=== PATIENT | male | born 1950 | race Caucasian/White ===

== ENCOUNTER → 2018-05-04 19:03 | Outpatient (REF) | payer OTHER, SELFPAY ==
[2018-05-04 19:50] LABS: Add Manual Diff / Slide Review NO; Basophils Absolute Auto 0 /uL (0-100); Basophils Percent Auto 0.5 % (0-2); Eosinophils Absolute Auto 300 /uL (0-450); Eosinophils Percent Auto 4.2 % (2-4); Hematocrit 41.5 % (41-53); Hemoglobin 13.8 g/dL (13.5-17.5); Lymphocytes Absolute Auto 1400 /uL (1100-4500); Lymphocytes Percent Auto 19.4 % (25-40); Mean Corpuscular HGB Conc 33.3 % (30-36); Mean Corpuscular Hemoglobin 29.9 PG (26-34); Mean Corpuscular Volume 89.9 fL (80-100); Monocytes Absolute Auto 500 /uL (0-900); Neutrophils Absolute Auto 5000 /uL (1500-7000); Neutrophils Percent Auto 68.9 % (50-75); Platelet Count 224 X10^3/uL (150-400); Red Blood Cell Count 4.61 X10^6/uL (4.5-5.9); Red Cell Distribution Width 13.3 % (11.6-14.8); White Blood Cell Count 7.3 X10^3/uL (4.5-11.0)
[2018-05-04 20:01] LABS: Alanine Aminotransferase 54 IU/L (21-72); Albumin 4.1 g/dL (3.5-5.0); Albumin Globulin Ratio 1.5 (1.0-2.8); Alkaline Phosphatase 78 U/L (38-126); Aspartate Aminotransferase 48 IU/L (17-59); BUN Creatinine Ratio 16.7 (6-22); Blood Urea Nitrogen 15 mg/dL (9-20); Calcium 9.2 mg/dL (8.4-10.2); Carbon Dioxide 25 mmol/L (22-32); Chloride 100 mmol/L (98-107); Cholesterol 104 mg/dL (140-199); Estimated Glomerular Filt Rate > 60.0 mL/min (>60); Globulin 2.7 g/dL (1.7-4.1); Glucose 90 mg/dL (80-110); HDL Cholesterol 62 mg/dL (40-60); HEMOLYSIS < 15 (0-50); LDL Cholesterol Calculated 29 mg/dL (<100); Potassium 4.3 mmol/L (3.4-5.1); Sodium 136 mmol/L (137-145); Total Protein 6.8 g/dL (6.3-8.2); Triglycerides 63 mg/dL (35-150)
[2018-05-04 20:31] LABS: Prostate Specific Antigen 9.57 ng/mL (0.10-4.00)
== END ==
LOC: LAB 19:03
PROVIDERS: Visit Provider Physician Assistant Medical
DX: I21.9 Acute myocardial infarction, unspecified (principal); I10 Essential (primary) hypertension; Z12.5 Encounter for screening for malignant neoplasm of prostate; Z13.220 Encounter for screening for lipoid disorders
CPT/HCPCS: 36415; 80053; 80061; 84153; 85025

== ENCOUNTER → 2019-10-30 11:15 | Outpatient (CLI) | payer MEDICARE, SELFPAY ==
[2019-10-30 13:05] LABS: Prostate Specific Antigen 58.5 ng/mL (0.10-4.00)
== END ==
PROVIDERS: PCP Family Medicine; Referring Provider Family Medicine; Visit Provider Specialist
DX: N40.3 Nodular prostate with lower urinary tract symptoms (principal); R97.20 Elevated prostate specific antigen [PSA]; Z80.42 Family history of malignant neoplasm of prostate
CPT/HCPCS: 36415; 81002; 84153; 99214

== ENCOUNTER → 2019-12-09 10:58 | Outpatient (CLI) | payer MEDICARE, SELFPAY ==
--- NOTE | 2019-12-09 11:00 | DI.NM.S_ITS ---
PROCEDURE: NM BONE SCAN WHOLE BODY RADIOPHARMACEUTICAL: 23.3 mCi Tc-99m MDP IV. INDICATIONS: prostate cancer TECHNIQUE: Delayed whole-body scintigrams were obtained approximately 3-4 hours after intravenous injection of radiotracer. Anterior and posterior views were acquired from vertex to feet. Additional left and right oblique views of the pelvis were obtained. COMPARISON: [facility], CT, CT CHEST ABD PEL W CON, 12/09/2019, 12:34. FINDINGS: Physiologic uptake is noted within the kidneys and bladder. Mild areas of increased uptake are noted within the small bones of the feet. Small areas of increased uptake are noted overlying the glenohumeral joints. It is noted that no abnormality within this region is identified on CT exam of 12/09/2019. IMPRESSION: No definitive areas of metastatic disease. Dictated by: Lilo Muller M.D. on 12/09/2019 at 17:10 Approved by: Lilo Muller M.D. on 12/09/2019 at 17:12
[2019-12-09 12:20] LABS: BUN Creatinine Ratio 18.1 (6-22); Blood Urea Nitrogen 21 mg/dL (9-20); Calcium 9.6 mg/dL (8.4-10.2); Carbon Dioxide 31 mmol/L (22-32); Chloride 104 mmol/L (98-107); Estimated Glomerular Filt Rate > 60.0 mL/min (>60); Glucose 95 mg/dL (80-110); HEMOLYSIS < 15 (0-50); Potassium 4.2 mmol/L (3.4-5.1); Sodium 139 mmol/L (137-145)
--- NOTE | 2019-12-09 12:55 | DI.CT.S_ITS ---
PROCEDURE: CT CHEST ABD PEL W CON INDICATIONS: prostate cancer TECHNIQUE: After the administration of oral and intravenous contrast, 5 mm thick sections acquired from the lung apices to the symphysis. 5 mm coronal and sagittal reformats were performed, with additional 7 mm coronal MIP reformats through the lungs. For radiation dose reduction, the following was used: automated exposure control, adjustment of mA and/or kV according to patient size. COMPARISON: None. FINDINGS: Image quality: Excellent. CHEST: Lungs and pleura: Peripheral reticular thickening with mild honeycombing at the upper lobes anteriorly. This is due to fibrosis. Accessory azygos fissure. A few punctate calcified granuloma. No acute airspace opacities. No pleural effusions or pneumothorax. Central and peripheral airways appear patent and normal in caliber. Mediastinum: Heart size is normal. No pericardial effusion. Small left pericardiac lymph node. No mediastinal or hilar adenopathy by size criteria. Mildly prominent paratracheal lymph node. Thoracic aorta and central pulmonary arteries are normal in size. No central pulmonary embolism. Esophagus is normal in caliber. No hiatal hernia. Chest wall: No axillary or supraclavicular adenopathy by size criteria. Thyroid gland is unremarkable. ABDOMEN: Solid organs: Liver is normal in size and enhancement. Gallbladder is unremarkable . Biliary system is non dilated. Pancreas enhances normally. Spleen is normal in size and enhancement. No adrenal nodules. Kidneys demonstrate normal size and enhancement, without hydronephrosis. Peritoneum and bowel: Bowel loops demonstrate normal wall thickness and caliber. No free fluid or air. Diverticulosis. Normal appendix. Nodes and vessels: No retroperitoneal or mesenteric adenopathy by size criteria. Small left periaortic lymph node. Aorta and inferior vena cava are normal in size. Miscellaneous: No ventral hernias. PELVIS: Genitourinary: Bladder is unremarkable. The prostate gland is enlarged. There is abnormal thickening surrounding the inferior rectum which appears contiguous with the prostate gland, (4/116). This could be due to extracapsular extension. Miscellaneous: Small fat containing left inguinal hernia. No enlarged adenopathy. Bones: Sclerotic focus in the right L5 transverse process, (5/40). No vertebral body compression fractures. IMPRESSION: 1. Abnormal thickening of the inferior rectum. This could be due to extraprostatic extension, rectal cancer, or infectious/inflammatory etiology. -consider further evaluation with a prostate MRI. 2. No enlarged pelvic lymph nodes identified. Mildly prominent nonspecific right paratracheal lymph node. 3. Sclerotic focus in the right L5 transverse process. Suspect bone island rather than metastatic disease. -recommend attention on same day bone scan. 4. Findings most compatible with pulmonary fibrosis. -recommend transportation superintendent consultation if care not already established. Dictated by: Desmond Guerrero M.D. on 12/09/2019 at 16:15 Approved by: Desmond Guerrero M.D. on 12/09/2019 at 16:31
== END ==
PROVIDERS: PCP Family Medicine; Referring Provider Specialist; Visit Provider Specialist
DX: C61 Malignant neoplasm of prostate (principal); N28.9 Disorder of kidney and ureter, unspecified
CPT/HCPCS: 36415; 71260; 74177; 78306; 80048; A9503; Q9967

== ENCOUNTER → 2019-12-18 12:55 | Outpatient (CLI) | payer MEDICARE, SELFPAY ==
--- NOTE | 2019-12-18 12:56 | DI.MRI.S_ITS ---
PROCEDURE: MR PELIS WO/W CON INDICATIONS: prostate cancer TECHNIQUE: Coronal HASTE, axial T1 FSE with fat saturation, 3-plane nonbreath-hold T2 FSE. After the administration of contrast, dynamic axial, delayed axial and coronal VIBE or 2-D FLASH with fat saturation through the pelvis. Optional diffusion weighted imaging and ADC may be performed. COMPARISON: [facility], NM, NM BONE SCAN WHOLE BODY, 12/09/2019, 15:59. [facility], CT, CT CHEST ABD PEL W CON, 12/09/2019, 12:34. FINDINGS: Image quality: Fair. Diffusion weighted and dynamic contrast enhanced images are diagnostic. Prostate: Gland size is 4.4 x 3.3 x 3.1 cm; ellipsoid gland volume is 23 mL. Small focus of intrinsic T1 hyperintensity in the right apex peripheral zone likely due to hemorrhage. Lesion size(s): Lesion 1: Approximately 1.5 x 1.3 cm, (36/15). Lesion 2: 0.9 x 0.7 cm, (4/18). Lesion location(s) (sector): Lesion 1: Left midgland transitional zone. Lesion 2: Left apex peripheral zone. Lesion description: Lesion 1: Irregular Lesion 2: Oval T2 weighted imaging (T2WI) morphology score: Lesion 1: 3 Lesion 2: 3 Diffusion weighted imaging (DWI) morphology score: Lesion 1: 5 Lesion 2: 4 Dynamic contrast enhancement (DCE): Lesion 1: Absent Lesion 2: Absent Lesion PI-RADS score: Lesion 1: PI-RADS 4. Lesion 2: PI-RADS 4. Genitourinary system: Bladder wall thickness is normal. Distal ureters are non distended. Small bilateral hydroceles. Prominent seminal vesicles. Bowel and peritoneum: No pathologic free pelvic fluid. The rectum appears somewhat thickened. Diverticulosis. Nodes and vessels: No pelvic or inguinal adenopathy by size criteria. Iliac vessels are normal in caliber. Soft tissues: No inguinal hernias. Enhancing focus at the left anterior inferior iliac spine at the rectus femoris origin due to tendinosis, (33/55). Bones: Marrow demonstrates normal overall signal, without lesions to suggest metastases. IMPRESSION: 1. Left apex peripheral zone PI-RADS 4 lesion measuring 0.9 cm. 2. Left mid gland transitional zone PI-RADS 4 lesion measuring 1.5 cm. 3. No adenopathy identified. 4. Abnormal thickening of the inferior rectum with apparent restricted diffusion. This is concerning for rectal carcinoma. -recommend correlation with colonoscopy and biopsy if not recently performed. 5. Small bilateral hydroceles. 6. Rectus femoris origin tendinosis. Dictated by: Desmond Guerrero M.D. on 12/18/2019 at 17:47 Approved by: Desmond Guerrero M.D. on 12/18/2019 at 18:25
== END ==
PROVIDERS: PCP Family Medicine; Referring Provider Family Medicine; Visit Provider Specialist
DX: C61 Malignant neoplasm of prostate (principal); N43.3 Hydrocele, unspecified
CPT/HCPCS: 72197

== ENCOUNTER 2019-12-31 10:38 | Day surgery (SDC) | payer MEDICARE, SELFPAY ==
--- NOTE | 2019-12-31 | PATH_ITS ---
[facility] Accession Number: [id number] . 01 Material submitted: . PART A: body - POLYP AT 35CM PART B: sigmoid colon - SIGMOID POLYP AT 25CM PART C: rectum - RECTAL POLYPS . 02 Diagnosis: A. Colon, Polyp 35 cm, Biopsy: Tubular adenoma. . B. Sigmoid, Polyp 25 cm, Biopsy: Tubular adenoma. . C. Rectum, Polyps, Biopsies: Hyperplastic polyps. [facility]V 01/03/2020 1022 Local . 02 Electronically signed: . Mercy Bonner MD, Pathologist NPI- [id number] . 01 Gross description: . A. Specimen A is received in formalin, labeled polyp at 35 cm and consists of two garcia fragments of soft tissue, measuring 0.4 x 0.3 x 0.2 cm in aggregate. The specimen is entirely submitted in cassette A1. B. Specimen B is received in formalin, labeled sigmoid polyp at 25 cm and consists of a 0.4 x 0.3 x 0.3 cm garcia-brown polyp, which is entirely submitted in cassette B1. C. Specimen C is received in formalin, labeled rectal polyp and consists of four garcia-pink fragments of soft tissue, measuring 0.6 x 0.5 x 0.2 cm in aggregate. The specimen is entirely submitted in cassette C1. ([id number]) /[facility] 01/01/2020 1646 Local . 02 Pathologist provided ICD-10: D12.6, D12.5 . 02 CPT . 517072, 224816, 829050 Performed at: [address] [facility], [place], [place] [id number] MD Amos Dior MD Phone: [phone] Performed at: [facility] [place] [address] [place] [id number] MD Mercy Bonner MD Phone: [phone]
[2019-12-31] MEDS: LACTATED RINGERS 1,000 ML 200 ML IV (10:50)
[2019-12-31 10:56] VITALS: BP 172/78; PULSE 63; RESP 18; TEMP 37.1; O2SAT 99; BMI 23.6
--- NOTE | 2019-12-31 11:10 | SUR.PREOP ---
pt arrived approximately 1 1/2 hours late due to [place] issues.
--- NOTE | 2019-12-31 11:35 | PM.PREOP ---
Pre-operative Note COVID-19 COVID-19 status: Negative Result date/Date tested (Pos, Neg/Pending): 12/28/19 Interval Note History & Physical reviewed/Exam performed by Physician: Yes Changes to H&P: No ASA Class (for procedural sedation): III
[2019-12-31] MEDS: LIDOCAINE JELLY 2% 5 ML 1 APPLIC TOP (11:40)
[2019-12-31] MEDS: MIDAZOLAM 5 MG/5 ML VIAL IV (11:44)
[2019-12-31] MEDS: fentaNYL 250 MCG/5 ML INJ IV (11:44)
--- NOTE | 2019-12-31 12:12 | PM.OP.ENDO ---
Operative Date/Time/Diagnoses Date of procedure: 12/31/19 Time of procedure: 12:12 Pre-op diagnosis: Screening examination. Abnormal rectal imaging. Post-op diagnosis: same (Multiple polyps 1 of which was snared. None suspicious for malignancy. Enlarged prostate. Extensive sigmoid diverticulosis with tortuosity a and mild narrowing) Procedure & Clinicians Study performed: Colonoscopy with hot snare polypectomy and cold biopsy Same procedure as scheduled: Yes Indications: Screening. Abnormal rectal imaging with possible mass. Known prostate cancer. Surgeon: Antonio Allen Procedure Notes SCOAP/Timeout: Performed Procedure in detail: The patient was placed in the left lateral decubitus position and underwent IV sedation directed by the surgeon consisting of fentanyl and Versed. Digital exam was remarkable for an enlarged prostate. Mild narrowing at the sphincter. To present lidocaine gel was applied to the sphincter prior to inserting the scope.. The scope was inserted and advanced through the rectum into the sigmoid, descending, transverse, and ascending colon. Patient had extensive sigmoid diverticulosis with tortuosity and some mild narrowing. We slowly to go she did through. At about 35 cm there was a polyp on a stalk which I decided to remove on the way out. We made our way through the colon and ultimately cannulated the cecum.. The cecum was reached identified by the ileocecal valve and the appendiceal opening. The scope was gradually brought out. Multiple small Polyps were found at 25 cm from the anal verge in in the rectum near the anus. These were biopsied and removed. The polyp at 35 cm was snared and retrieved. The base was cauterized to ensure complete destruction.. The scope ultimately was retroflexed in the rectum. The appearance was[]. The scope was removed and the patient tolerated the procedure well. The prep was good. Scope withdrawal time: 10 minutes(17.5 total) Sedation minutes: 31 Findings: diverticulosis (Extensive sigmoid) and polyp (Multiple polyps. One at 35 cm snared. It was on a stalk.) Specimen(s): other (Polyps) Complications: none Post-procedure Recommendations: Colonscopy in 5 years Follow up: as needed Disposition: PACU
[2019-12-31 12:13] VITALS: BP 111/65; PULSE 59; RESP 20; TEMP 36.5; O2SAT 96
[2019-12-31 12:20] VITALS: BP 103/60; PULSE 56; RESP 18; O2SAT 95
[2019-12-31 12:24] VITALS: BP 96/64; PULSE 71; RESP 19; O2SAT 96
[2019-12-31 12:30] VITALS: BP 124/76; PULSE 57; RESP 12; O2SAT 96
[2019-12-31 12:42] VITALS: BP 128/65; PULSE 51; RESP 13; TEMP 37.4; O2SAT 96
== END 2019-12-31 12:50 | disposition home or self-care (01) ==
PROVIDERS: PCP Family Medicine; Referring Provider Specialist; Visit Provider Specialist
PROC: 0DJD8ZZ Inspection of Lower Intestinal Tract, Via Natural or Artificial Opening Endoscopic (ICD-10-PCS; CPT 45378; principal; 2019-12-31 10:00)
DX: D12.5 Benign neoplasm of sigmoid colon (principal); C61 Malignant neoplasm of prostate; I10 Essential (primary) hypertension; I25.10 Atherosclerotic heart disease of native coronary artery without angina pectoris; K57.30 Diverticulosis of large intestine without perforation or abscess without bleeding; F17.210 Nicotine dependence, cigarettes, uncomplicated; D12.6 Benign neoplasm of colon, unspecified
CPT/HCPCS: 45385; 45380; 99152; J2250; J3010

== ENCOUNTER → 2020-01-15 10:30 | Outpatient (CLI) | payer MEDICARE, SELFPAY ==
[2020-01-15 13:24] LABS: Prostate Specific Antigen 68.2 ng/mL (0.10-4.00)
== END ==
PROVIDERS: PCP Family Medicine; Referring Provider Specialist; Visit Provider Specialist
DX: C61 Malignant neoplasm of prostate (principal); Z79.899 Other long term (current) drug therapy
CPT/HCPCS: 36415; 84153; 96372; 96402; J0897; J9155